=== PATIENT | male | born 1990 | race Two or more races ===

== ENCOUNTER 2018-04-15 08:41 | Emergency (ER) | payer OTHER ==
[~2018-04-15] VITALS: Ht 170.2 cm; Wt 64.0 kg
[2018-04-15 08:43] VITALS: BP 115/80
--- NOTE | 2018-04-15 08:45 | NUR ---
PT AMBULATES TO BED 4
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
--- NOTE | 2018-04-15 08:48 | NUR ---
REPORT GIVEN TO EVELYN ARRIAGA
--- NOTE | 2018-04-15 08:51 | NUR ---
DR CORLEY EVALUATING AT BEDSIDE
--- NOTE | 2018-04-15 09:00 | NUR ---
XRAY AT BEDSIDE
--- NOTE | 2018-04-15 09:00 | NUR ---
Yuri roach in [facility] - 04/15/18 at 0900 by [email or web address] X RAY AT BEDSIDE.
[2018-04-15 09:38] VITALS: BP 121/71
--- NOTE | 2018-04-15 09:38 | NUR ---
Patient discharged with v/s stable. Written and verbal after care instructions given and explained. Patient verbalized understanding. Ambulatory with steady gait. All questions addressed prior to discharge. Advised to follow up with PMD.
--- NOTE | 2018-04-15 09:40 | NUR ---
SPINT BY MARTY SOLARES, PT TOLERATED PROCEDURE WELL.
== END 2018-04-15 09:40 | disposition home or self-care (01) ==
LOC: MED 08:41
DX: S63.501A Unspecified sprain of right wrist, initial encounter (principal); S60.211A Contusion of right wrist, initial encounter; X58.XXXA Exposure to other specified factors, initial encounter; Y93.71 Activity, boxing; Y99.8 Other external cause status; Y92.89 Other specified places as the place of occurrence of the external cause
CPT/HCPCS: 73110; 99284

== ENCOUNTER 2018-11-24 03:35 | Emergency (ER) | payer OTHER ==
[~2018-11-24] VITALS: Ht 167.6 cm; Wt 67.1 kg
[2018-11-24 03:39] VITALS: BP 147/90
[2018-11-24] MEDS: IBUPROFEN 600 MG TAB PO ONE (04:26)
[2018-11-24 04:37] VITALS: BP 117/65
== END 2018-11-24 04:36 | disposition home or self-care (01) ==
LOC: MED 03:35
DX: S63.502A Unspecified sprain of left wrist, initial encounter (principal); W22.8XXA Striking against or struck by other objects, initial encounter; Y93.B9 Activity, other involving muscle strengthening exercises; Y92.39 Other specified sports and athletic area as the place of occurrence of the external cause; Y99.8 Other external cause status
CPT/HCPCS: 29125; 73130; 99283; Q0092

== ENCOUNTER 2019-07-16 01:01 | Emergency (ER) | payer OTHER ==
[~2019-07-16] VITALS: Ht 167.6 cm; Wt 67.1 kg
[2019-07-16 01:11] VITALS: BP 126/89
--- NOTE | 2019-07-16 01:14 | NUR ---
PT AMBULATED TO BED 7.
--- NOTE | 2019-07-16 01:36 | NUR ---
Dr. Blue examining patient.
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
[2019-07-16] MEDS: KETOROLAC 30 MG/ML VIAL IM ONE (02:27)
[2019-07-16] MEDS: NACL 0.9% 1,000 ML IV ONE (02:49)
[2019-07-16] MEDS: MORPHINE SULFATE 4 MG/ML SYR IVP ONE (02:52)
--- NOTE | 2019-07-16 03:36 | NUR ---
CALLED [facility]. GAVE REPORT TO LEATHA RIVAS REGARDING PT.
--- NOTE | 2019-07-16 04:36 | NUR ---
PT LAYING ON BED. C/O OF PAIN 7/10 ON BILAT HANDS. WILL CONTINUE TO MONITOR.
--- NOTE | 2019-07-16 05:04 | NUR ---
[facility] AT BEDSIDE
[2019-07-16 05:14] VITALS: BP 121/76
--- NOTE | 2019-07-16 05:14 | NUR ---
PT TRANSFERRED TO [facility] ER. REPORT GIVEN TO [facility]. REPORT GIVEN TO LEATHA RIVAS AT [facility]. PT VSS. PT CARE TRANSFERRED TO EMT.
== END 2019-07-16 05:14 | disposition short-term general hospital (02) ==
LOC: MED 01:01
DX: T23.201A Burn of second degree of right hand, unspecified site, initial encounter (principal); T23.202A Burn of second degree of left hand, unspecified site, initial encounter; T20.10XA Burn of first degree of head, face, and neck, unspecified site, initial encounter; T31.0 Burns involving less than 10% of body surface; W40.1XXA Explosion of explosive gases, initial encounter; Y93.89 Activity, other specified; Y92.812 Truck as the place of occurrence of the external cause; Y99.8 Other external cause status
CPT/HCPCS: 16000; 90471; 90715; 96372; 96374; 99285; J1885; J2270; J7030; 16020

== ENCOUNTER 2022-05-11 18:37 | Emergency (ER) | payer OTHER ==
[~2022-05-11] VITALS: Ht 170.2 cm; Wt 75.7 kg
[2022-05-11 18:43] VITALS: BP 12/68
[2022-05-11] MEDS ORDERED: CEPH-588 PO (19:15)
[2022-05-11] MEDS ORDERED: IBUP-2213 PO (19:15)
[2022-05-11 19:30] VITALS: BP 120/68
--- NOTE | 2022-05-11 19:30 | NUR ---
Patient discharged. Written and verbal after care instructions given and explained about cellulitis and plantar fasciitis. Patient alert, oriented and verbalized understanding of instructions. Ambulatory with steady gait. All questions addressed prior to discharge. ID band removed. Patient advised to follow up with PMD. Rx of Keflex and ibuprofen given. Patient educated on indication of medication including possible reaction and side effects. Opportunity to ask questions provided and answered.
== END 2022-05-11 19:30 | disposition home or self-care (01) ==
LOC: MED 18:37
DX: L03.115 Cellulitis of right lower limb (principal); M72.2 Plantar fascial fibromatosis; Z79.899 Other long term (current) drug therapy
CPT/HCPCS: 99284

== ENCOUNTER 2023-12-27 19:24 | Emergency (ER) | payer OTHER ==
[~2023-12-27] VITALS: Ht 167.6 cm; Wt 81.6 kg
[~2023-12-27 19:24] MED LIST: CEPH-588 PO; IBUP-2213 PO
[2023-12-27 19:40] VITALS: BP 137/73; PULSE 81; RESP 14; TEMP 96.8; O2SAT 99
[2023-12-27] MEDS ORDERED: IBUP-2213 PO (21:23)
== END 2023-12-27 21:48 | disposition home or self-care (01) ==
LOC: MED 19:24
DX: S63.601A Unspecified sprain of right thumb, initial encounter (principal); Z79.899 Other long term (current) drug therapy; X58.XXXA Exposure to other specified factors, initial encounter; Y92.89 Other specified places as the place of occurrence of the external cause; Y93.89 Activity, other specified; Y99.8 Other external cause status
CPT/HCPCS: 73130; 99283